=== PATIENT | male | born 2000 | race Caucasian/White ===

== ENCOUNTER 2019-06-08 11:25 | Emergency (ER) | payer MEDICAID ==
[~2019-06-08] VITALS: Ht 182.9 cm; Wt 59.0 kg
[2019-06-08 11:31] VITALS: BP 123/74
[2019-06-08] MEDS ORDERED: DICYCLOMINE HCL LIQUID 20 MG, ALUMINUM HYD/MAG/SIMETHICONE 30 ML, LIDOCAINE VISCOUS 2% ... PO ONE ×3 (11:55)
[2019-06-08] MEDS ORDERED: ACETAMINOPHEN 325 MG TAB PO ONE (11:55)
[2019-06-08 13:08] VITALS: BP 123/74
== END 2019-06-08 13:08 | disposition home or self-care (01) ==
LOC: MED 11:25
DX: R10.9 Unspecified abdominal pain (principal); F84.0 Autistic disorder
CPT/HCPCS: 81002; 99283